=== PATIENT | female | born 1945 | race Caucasian/White ===

== ENCOUNTER 2016-05-06 15:30 | Inpatient (IN) | payer MEDICARE, OTHER ==
[2016-05-06 13:31] LABS: BASO % 0.4 % (0-2); EOS % 1.3 % (0-7); EOSINOPHIL ABSOLUTE COUNT 0.1 tho/cmm (0.0-0.7); HCT-HEMATOCRIT 31.2 % (34.0-49.0); HGB-HEMOGLOBIN 10.1 gm/dl (12.0-15.5); IMMATURE GRANULOCYTES ABSOLUTE 0.02 tho/cmm (0-0.03); IMMATURE GRANULOCYTES PERCENT 0.4 % (0-0.3); LYMPH ABSOLUTE COUNT 0.4 tho/cmm (0.8-4.5); MCH (MEAN CORPUSCULAR HGB) 29.7 pg (28.0-32.0); MCHC MEAN CORPUSCULAR HGB CONC 32.4 % (32.0-36.0); MCV (MEAN CELL VOLUME) 91.8 fl (82.0-96.0); MEAN PLATELET VOLUME 9.1 cmc (9.4-12.4); MONOCYTE ABSOLUTE COUNT 0.7 tho/cmm (0.0-1.2); NEUTROPHIL ABSOLUTE COUNT 4.1 tho/cmm (1.6-8.0); NEUTROPHIL-AUTOMATED 4.1 tho/cmm (1.6-8.0); NEUTROPHILS % 76.9 % (40-80); PLATELET COUNT 266 tho/cmm (150-450); RED CELL DISTRIBUTION WIDTH 15.7 % (12.4-16.4); WHITE BLOOD COUNT 5.3 tho/cmm (4.0-10.0)
[2016-05-06 13:58] LABS: ALB/GLOB RATIO 0.8 (0.8-2.0); ALBUMIN 2.8 g/dl (3.5-5.0); ALKALINE PHOSPHATASE 93 U/L (33-138); ALT/SGPT 24 U/L (12-78); ANION GAP 12 mmol/L (0-20); AST/SGOT 25 U/L (10-40); BILIRUBIN,TOTAL 0.5 mg/dl (0-1.5); BLOOD UREA NITROGEN 11 mg/dl (6-24); CALCIUM 8.3 mg/dl (8.5-10.5); CARBON DIOXIDE-VENOUS 25 mmol/L (22-32); CHLORIDE 103 mmol/l (96-110); CREATININE 0.58 mg/dl (0.50-1.10); GLUCOSE 112 mg/dL (70-110); POTASSIUM 3.2 mmol/L (3.7-5.1); SODIUM 137 mmol/L (135-145); eGFR VALUE FOR BLACK >90 mL/Min
[2016-05-06 14:13] LABS: PROCALCITONIN 0.13 ng/ml (0.05-0.09)
[~2016-05-06 15:30] MED LIST: ALDACTONE25 M1 PO; ALEVE220 M4 PO; ATIVAN1 M2 PO; CIPRO500 M2 PO; COMPAZINE10 MG PO; DIFLUCAN100 M1 PO; DIFLUCAN150 M1 PO; ENDOCET 5-3251 EACH PO; FLAGYL500 M1 PO; FLUDROCORTISON0.1 M1 PO; IBUPROFEN800 M1 PO; LEVAQUIN750 M1 PO; LEXAPRO20 M2 PO; LORAZEPAM0.5 M1 PO; NORCO 10-325 T1 EACH PO; ONDANSETRON HCL8 M1 PO; POTASSIUM CHLO10 ME2 PO; PREDNISONE20 M1; PREDNISONE20 M1 PO; PREDNISONE5 M1; PREDNISONE5 M1 PO; PROCHLORPERAZIN10 M1 PO; TESSALON PERLE100 M1 PO; TYLENOL325 M2 PO; ZITHROMAX250 M1 PO; ZOFRAN8 M1 PO; [UNRECOGNIZED DRUG - OTHER]; [UNRECOGNIZED DRUG - OTHER] PO; [UNRECOGNIZED DRUG - OTHER] PO
[2016-05-06 15:40] LABS: URINE BILIRUBIN NEGATIVE (NEG); URINE BLOOD NEGATIVE (NEG); URINE GLUCOSE (UA) NEGATIVE (NEG); URINE KETONE SMALL (NEG); URINE LEUKOCYTE ESTERASE NEGATIVE (NEG); URINE NITRITE NEGATIVE (NEG); URINE PROTEIN NEGATIVE (NEG); URINE SPECIFIC GRAVITY 1.005 (1.003-1.030)
[2016-05-06 15:41] LABS: URINE APPEARANCE CLEAR; URINE COLOR PALE YELLOW
[2016-05-07 04:52] LABS: BASO % 0.3 % (0-2); HGB-HEMOGLOBIN 10.1 gm/dl (12.0-15.5); IMMATURE GRANULOCYTES ABSOLUTE 0.01 tho/cmm (0-0.03); IMMATURE GRANULOCYTES PERCENT 0.3 % (0-0.3); LYMPH % 6.1 % (20-45); LYMPH ABSOLUTE COUNT 0.2 tho/cmm (0.8-4.5); MCH (MEAN CORPUSCULAR HGB) 29.3 pg (28.0-32.0); MCHC MEAN CORPUSCULAR HGB CONC 31.6 % (32.0-36.0); MCV (MEAN CELL VOLUME) 92.8 fl (82.0-96.0); MEAN PLATELET VOLUME 9.3 cmc (9.4-12.4); MONO % 3.5 % (0-12); MONOCYTE ABSOLUTE COUNT 0.1 tho/cmm (0.0-1.2); NEUTROPHIL ABSOLUTE COUNT 3.1 tho/cmm (1.6-8.0); NEUTROPHIL-AUTOMATED 3.1 tho/cmm (1.6-8.0); NEUTROPHILS % 89.8 % (40-80); PLATELET COUNT 301 tho/cmm (150-450); RED BLOOD COUNT 3.45 mil/cmm (4.00-5.20); RED CELL DISTRIBUTION WIDTH 15.9 % (12.4-16.4); WHITE BLOOD COUNT 3.5 tho/cmm (4.0-10.0)
[2016-05-07 05:57] LABS: ANION GAP 15 mmol/L (0-20); BLOOD UREA NITROGEN 11 mg/dl (6-24); CALCIUM 8.4 mg/dl (8.5-10.5); CARBON DIOXIDE-VENOUS 22 mmol/L (22-32); CHLORIDE 111 mmol/l (96-110); CREATININE 0.64 mg/dl (0.50-1.10); POTASSIUM 3.6 mmol/L (3.7-5.1); SODIUM 144 mmol/L (135-145); eGFR VALUE FOR BLACK >90 mL/Min
[2016-05-07 06:26] LABS: GLUCOSE 170 mg/dL (70-110)
[2016-05-08 12:14] LABS: HCT-HEMATOCRIT 29.4 % (34.0-49.0); HGB-HEMOGLOBIN 9.3 gm/dl (12.0-15.5); IMMATURE GRANULOCYTES ABSOLUTE 0.03 tho/cmm (0-0.03); IMMATURE GRANULOCYTES PERCENT 0.4 % (0-0.3); LYMPH % 2.7 % (20-45); LYMPH ABSOLUTE COUNT 0.2 tho/cmm (0.8-4.5); MCH (MEAN CORPUSCULAR HGB) 29.2 pg (28.0-32.0); MCHC MEAN CORPUSCULAR HGB CONC 31.6 % (32.0-36.0); MCV (MEAN CELL VOLUME) 92.5 fl (82.0-96.0); MEAN PLATELET VOLUME 9.7 cmc (9.4-12.4); MONO % 6.7 % (0-12); MONOCYTE ABSOLUTE COUNT 0.5 tho/cmm (0.0-1.2); NEUTROPHILS % 90.2 % (40-80); PLATELET COUNT 330 tho/cmm (150-450); RED BLOOD COUNT 3.18 mil/cmm (4.00-5.20)
[2016-05-08 12:25] LABS: ANION GAP 10 mmol/L (0-20); BLOOD UREA NITROGEN 13 mg/dl (6-24); CALCIUM 8.4 mg/dl (8.5-10.5); CARBON DIOXIDE-VENOUS 25 mmol/L (22-32); CHLORIDE 109 mmol/l (96-110); GLUCOSE 174 mg/dL (70-110); POTASSIUM 3.2 mmol/L (3.7-5.1); SODIUM 141 mmol/L (135-145); eGFR VALUE FOR BLACK >90 mL/Min
[2016-05-08 13:02] LABS: WHITE BLOOD COUNT 6.7 tho/cmm (4.0-10.0)
[2016-05-09 05:42] LABS: BASO % 0.1 % (0-2); HCT-HEMATOCRIT 30.3 % (34.0-49.0); HGB-HEMOGLOBIN 9.5 gm/dl (12.0-15.5); IMMATURE GRANULOCYTES ABSOLUTE 0.05 tho/cmm (0-0.03); IMMATURE GRANULOCYTES PERCENT 0.7 % (0-0.3); LYMPH % 8.1 % (20-45); LYMPH ABSOLUTE COUNT 0.5 tho/cmm (0.8-4.5); MCH (MEAN CORPUSCULAR HGB) 29.3 pg (28.0-32.0); MCHC MEAN CORPUSCULAR HGB CONC 31.4 % (32.0-36.0); MCV (MEAN CELL VOLUME) 93.5 fl (82.0-96.0); MEAN PLATELET VOLUME 9.6 cmc (9.4-12.4); MONO % 9.4 % (0-12); MONOCYTE ABSOLUTE COUNT 0.6 tho/cmm (0.0-1.2); NEUTROPHIL ABSOLUTE COUNT 5.5 tho/cmm (1.6-8.0); NEUTROPHIL-AUTOMATED 5.5 tho/cmm (1.6-8.0); NEUTROPHILS % 81.7 % (40-80); PLATELET COUNT 333 tho/cmm (150-450); RED BLOOD COUNT 3.24 mil/cmm (4.00-5.20); RED CELL DISTRIBUTION WIDTH 16.3 % (12.4-16.4); WHITE BLOOD COUNT 6.7 tho/cmm (4.0-10.0)
[2016-05-09 06:01] LABS: ANION GAP 11 mmol/L (0-20); BLOOD UREA NITROGEN 15 mg/dl (6-24); CALCIUM 8.4 mg/dl (8.5-10.5); CARBON DIOXIDE-VENOUS 26 mmol/L (22-32); CHLORIDE 112 mmol/l (96-110); CREATININE 0.74 mg/dl (0.50-1.10); GLUCOSE 122 mg/dL (70-110); POTASSIUM 3.2 mmol/L (3.7-5.1); SODIUM 146 mmol/L (135-145); eGFR VALUE FOR BLACK >90 mL/Min
[2016-05-10 05:30] LABS: ANION GAP 10 mmol/L (0-20); BLOOD UREA NITROGEN 12 mg/dl (6-24); CALCIUM 8.2 mg/dl (8.5-10.5); CARBON DIOXIDE-VENOUS 33 mmol/L (22-32); CHLORIDE 104 mmol/l (96-110); GLUCOSE 98 mg/dL (70-110); SODIUM 144 mmol/L (135-145); eGFR VALUE FOR BLACK >90 mL/Min
[2016-05-10 05:34] LABS: POTASSIUM 2.9 mmol/L (3.7-5.1)
[2016-05-11] MEDS ORDERED: OXYGEN (10:39)
[2016-05-11] MEDS ORDERED: SYNTHROID50 MC1 PO (10:40)
[2016-05-11] MEDS ORDERED: COMPAZINE10 MG PO (10:57)
[2016-05-11] MEDS ORDERED: DUONEB INH (13:13)
[2016-05-11] MEDS ORDERED: LEVAQUIN750 M1 PO (13:15)
[2016-05-11] MEDS ORDERED: PREDNISONE10 M1 PO (13:18)
[2016-09-26] MEDS ORDERED: IBUPROFEN800 M1 PO (11:21)
[2016-09-26] MEDS ORDERED: FLUDROCORTISON0.1 M1 PO (11:21)
[2016-10-30] MEDS ORDERED: SYNTHROID50 MC1 PO (14:58)
[2016-10-30] MEDS ORDERED: ONDANSETRON HCL8 M1 PO (14:58)
[2016-10-30] MEDS ORDERED: CYCLOBENZAPRINE10 M1 PO (15:02)
[2016-10-30] MEDS ORDERED: DIFLUCAN100 M1 PO (15:03)
[2016-10-30] MEDS ORDERED: TRAMADOL HCL50 M2 PO (15:05)
[2016-11-01] MEDS ORDERED: IBUPROFEN800 M1 PO (18:01)
[2016-11-06] MEDS ORDERED: ZANAFLEX4 M2 PO ×2 (12:37)
[2016-11-06] MEDS ORDERED: MIRALAX17 G2 PO (12:38)
[2016-11-06] MEDS ORDERED: SENNA PLUS TAB1 EAC1 PO (12:38)
[2016-11-06] MEDS ORDERED: TUSSIONEX PENN115 ML PO (12:39)
[2016-11-06] MEDS ORDERED: PREDNISONE10 M1 PO (12:41)
[2016-11-06] MEDS ORDERED: OXYCODONE PO (12:42)
[2016-11-06] MEDS ORDERED: PERCOCET 5-3251 EACH PO (12:43)
[2016-11-06] MEDS ORDERED: OXYCONTIN40 M2 PO (12:45)
[2016-11-06] MEDS ORDERED: TYLENOL325 M2 PO (12:46)
== END 2016-05-11 15:30 | DRG 190 ==
LOC: EDMED 15:30 → EMR2 17:07 → 5WF 19:30
PROVIDERS: Emergency Medicine; Family Medicine; Internal Medicine; ADMIT Hospitalist
DX: J44.0 Chronic obstructive pulmonary disease with (acute) lower respiratory infection (principal); J18.9 Pneumonia, unspecified organism; J96.01 Acute respiratory failure with hypoxia; C34.90 Malignant neoplasm of unspecified part of unspecified bronchus or lung; Z99.81 Dependence on supplemental oxygen; E87.70 Fluid overload, unspecified; E87.6 Hypokalemia; F32.9 Major depressive disorder, single episode, unspecified; M19.90 Unspecified osteoarthritis, unspecified site; Z87.891 Personal history of nicotine dependence; Z88.2 Allergy status to sulfonamides
CPT/HCPCS: G8987-GO-CI; G8988-GO-CI; G8989-GO-CI; J1650; J1940; J1956; J2930; J3480; J7030; J7512; Q9967

== ENCOUNTER 2016-05-14 11:14 | Day surgery (SDC) | payer MEDICARE, OTHER ==
[~2016-05-14 11:14] MED LIST changes: +DUONEB INH; +OXYGEN; +PREDNISONE10 M1 PO; +SYNTHROID50 MC1 PO
[2016-05-14 12:08] LABS: PROTHROMBIN TIME 11.1 SECONDS (9.0-13.6)
[2016-05-14 17:31] LABS: BAL APPEARANCE CLOUDY (CLEAR); BAL COLOR RED (COLORLESS)
[2016-05-14 17:33] LABS: BAL APPEARANCE CLOUDY (CLEAR); BAL COLOR RED (COLORLESS)
[2016-05-14 17:41] LABS: BAL LYMPHOCYTES 38 %; BAL NEUTROPHILS 6 %
[2016-05-14 17:50] LABS: BAL LYMPHOCYTES 31 %; BAL NEUTROPHILS 47 %
[2016-09-26] MEDS ORDERED: IBUPROFEN800 M1 PO (11:21)
[2016-09-26] MEDS ORDERED: FLUDROCORTISON0.1 M1 PO (11:21)
[2016-10-30] MEDS ORDERED: ONDANSETRON HCL8 M1 PO (14:58)
[2016-10-30] MEDS ORDERED: SYNTHROID50 MC1 PO (14:58)
[2016-10-30] MEDS ORDERED: CYCLOBENZAPRINE10 M1 PO (15:02)
[2016-10-30] MEDS ORDERED: DIFLUCAN100 M1 PO (15:03)
[2016-10-30] MEDS ORDERED: TRAMADOL HCL50 M2 PO (15:05)
[2016-11-01] MEDS ORDERED: IBUPROFEN800 M1 PO (18:01)
[2016-11-06] MEDS ORDERED: ZANAFLEX4 M2 PO ×2 (12:37)
[2016-11-06] MEDS ORDERED: MIRALAX17 G2 PO (12:38)
[2016-11-06] MEDS ORDERED: SENNA PLUS TAB1 EAC1 PO (12:38)
[2016-11-06] MEDS ORDERED: TUSSIONEX PENN115 ML PO (12:39)
[2016-11-06] MEDS ORDERED: PREDNISONE10 M1 PO (12:41)
[2016-11-06] MEDS ORDERED: OXYCODONE PO (12:42)
[2016-11-06] MEDS ORDERED: PERCOCET 5-3251 EACH PO (12:43)
[2016-11-06] MEDS ORDERED: OXYCONTIN40 M2 PO (12:45)
[2016-11-06] MEDS ORDERED: TYLENOL325 M2 PO (12:46)
== END 2016-05-14 16:50 ==
LOC: ENDOS 11:14 → SHSB 11:16
PROVIDERS: Internal Medicine Pulmonary Disease
PROC: 0B968ZX Drainage of Right Lower Lobe Bronchus, Via Natural or Artificial Opening Endoscopic, Diagnostic (ICD-10-PCS; principal; 2016-05-14)
PROC: 0B948ZX Drainage of Right Upper Lobe Bronchus, Via Natural or Artificial Opening Endoscopic, Diagnostic (ICD-10-PCS; 2016-05-14)
PROC: 0BBF8ZX Excision of Right Lower Lung Lobe, Via Natural or Artificial Opening Endoscopic, Diagnostic (ICD-10-PCS; 2016-05-14)
PROC: 0BBC8ZX Excision of Right Upper Lung Lobe, Via Natural or Artificial Opening Endoscopic, Diagnostic (ICD-10-PCS; 2016-05-14)
DX: J98.4 Other disorders of lung (principal); M19.90 Unspecified osteoarthritis, unspecified site; R51 Headache; G62.9 Polyneuropathy, unspecified; E03.9 Hypothyroidism, unspecified; F41.9 Anxiety disorder, unspecified; F32.9 Major depressive disorder, single episode, unspecified; J45.909 Unspecified asthma, uncomplicated; J44.9 Chronic obstructive pulmonary disease, unspecified; E87.6 Hypokalemia; C34.90 Malignant neoplasm of unspecified part of unspecified bronchus or lung; Z79.899 Other long term (current) drug therapy; Z88.2 Allergy status to sulfonamides; Z87.891 Personal history of nicotine dependence; Z90.89 Acquired absence of other organs; Z98.890 Other specified postprocedural states

== ENCOUNTER 2016-07-07 12:10 | Inpatient (IN) | payer MEDICARE ==
[2016-07-07] MEDS ORDERED: IPRAT-ALBUT 0.5-3 ML INH (12:20)
[2016-07-07] MEDS ORDERED: VITAMIN D250000 UNI1 PO (12:20)
[2016-07-07] MEDS ORDERED: LEVOTHYROXINE50 MC3 PO (12:21)
[2016-07-07] MEDS ORDERED: HYDROCODON-ACE1 EA15 PO (12:22)
[2016-07-10] MEDS ORDERED: NORCO 5-325 TA1 EACH PO (10:45)
[2016-09-26] MEDS ORDERED: IBUPROFEN800 M1 PO (11:21)
[2016-09-26] MEDS ORDERED: FLUDROCORTISON0.1 M1 PO (11:21)
[2016-10-30] MEDS ORDERED: SYNTHROID50 MC1 PO (14:58)
[2016-10-30] MEDS ORDERED: ONDANSETRON HCL8 M1 PO (14:58)
[2016-10-30] MEDS ORDERED: CYCLOBENZAPRINE10 M1 PO (15:02)
[2016-10-30] MEDS ORDERED: DIFLUCAN100 M1 PO (15:03)
[2016-10-30] MEDS ORDERED: TRAMADOL HCL50 M2 PO (15:05)
[2016-11-01] MEDS ORDERED: IBUPROFEN800 M1 PO (18:01)
[2016-11-06] MEDS ORDERED: ZANAFLEX4 M2 PO ×2 (12:37)
[2016-11-06] MEDS ORDERED: MIRALAX17 G2 PO (12:38)
[2016-11-06] MEDS ORDERED: SENNA PLUS TAB1 EAC1 PO (12:38)
[2016-11-06] MEDS ORDERED: TUSSIONEX PENN115 ML PO (12:39)
[2016-11-06] MEDS ORDERED: PREDNISONE10 M1 PO (12:41)
[2016-11-06] MEDS ORDERED: OXYCODONE PO (12:42)
[2016-11-06] MEDS ORDERED: PERCOCET 5-3251 EACH PO (12:43)
[2016-11-06] MEDS ORDERED: OXYCONTIN40 M2 PO (12:45)
[2016-11-06] MEDS ORDERED: TYLENOL325 M2 PO (12:46)
== END 2016-07-10 11:05 | disposition home health service (06) | DRG 563 ==
LOC: EDMED 12:10 → EMR2 15:25 → 5EB 20:12
PROVIDERS: ADMIT Orthopaedic Surgery Sports Medicine
DX: S82.145A Nondisplaced bicondylar fracture of left tibia, initial encounter for closed fracture (principal); Z99.81 Dependence on supplemental oxygen; C34.90 Malignant neoplasm of unspecified part of unspecified bronchus or lung; W10.9XXA Fall (on) (from) unspecified stairs and steps, initial encounter; E03.9 Hypothyroidism, unspecified; F41.9 Anxiety disorder, unspecified; Y92.019 Unspecified place in single-family (private) house as the place of occurrence of the external cause
CPT/HCPCS: G0378; G8978-GP-CM; G8979-GP-CL; G8980-GP-CM; J2270; J2405; J3010; J7512